=== PATIENT | female | born 1995 | race Caucasian/White ===

== ENCOUNTER 2020-12-29 10:41 | Emergency (ER) | payer OTHER ==
[~2020-12-29] VITALS: Ht 170.2 cm; Wt 66.8 kg
[2020-12-29] MEDS ORDERED: SM M250T2 PO (10:57)
[2020-12-29] MEDS ORDERED: ASCO500T PO (10:57)
[2020-12-29] MEDS ORDERED: MULTTAB20 PO (10:57)
[2020-12-29] MEDS ORDERED: CINN500C2 PO (10:57)
[2020-12-29 11:37] LABS: BASO % 0.4 % (0.0-1.0); EOS # 0.1 10^3/uL (0.0-0.5); HEMATOCRIT 40.2 % (36.0-47.0); HEMOGLOBIN 13.5 g/dl (12.0-15.5); LYMPH # 1.9 10^3/uL (1.5-5.0); LYMPH % 19.3 % (24.0-44.0); MEAN CORPUSCULAR HEMOGLOBIN 29.9 pg (27.0-33.0); MEAN CORPUSCULAR HGB CONC 33.6 g/dl (32.0-36.5); MEAN CORPUSCULAR VOLUME 89.1 fl (80.0-96.0); MONO # 0.7 10^3/uL (0.0-0.8); MONO % 6.9 % (2.0-8.0); NEUTROPHILS # 7.2 10^3/uL (1.5-8.5); NEUTROPHILS % 72.2 % (36.0-66.0); PLATELET COUNT, AUTOMATED 380 10^3/uL (150-450); RED BLOOD COUNT 4.51 10^6/uL (4.00-5.40)
[2020-12-29 12:06] LABS: ALBUMIN 3.7 GM/DL (3.2-5.2); ALT/SGPT 13 U/L (12-78); BILIRUBIN,DIRECT 0.2 MG/DL (0.0-0.2); BILIRUBIN,TOTAL 1.1 MG/DL (0.2-1.0); BLOOD UREA NITROGEN 8 MG/DL (7-18); CALCIUM LEVEL 8.8 MG/DL (8.5-10.1); CARBON DIOXIDE LEVEL 32 MEQ/L (21-32); CHLORIDE LEVEL 107 MEQ/L (98-107); CREATININE FOR GFR 0.66 MG/DL (0.55-1.30); GLOMERULAR FILTRATION RATE > 60.0 (>60); GLUCOSE, FASTING 83 MG/DL (70-100); HCG, SERUM QUALITATIVE NEGATIVE (NEGATIVE); LIPASE 110 U/L (73-393); POTASSIUM SERUM 4.3 MEQ/L (3.5-5.1); SODIUM LEVEL 140 MEQ/L (136-145); TOTAL PROTEIN 7.5 GM/DL (6.4-8.2)
[2020-12-29 13:50] LABS: APPEARANCE, URINE CLEAR (CLEAR); BACTERIA, URINE AUTO NEGATIVE (NEGATIVE); BILIRUBIN, URINE AUTO NEGATIVE (NEGATIVE); BLOOD, URINE BLOOD 1+ (NEGATIVE); COLOR, URINE STRAW (YELLOW); GLUCOSE, URINE (UA) AUTO NEGATIVE (NEGATIVE); KETONE, URINE AUTO NEGATIVE (NEGATIVE); LEUKOCYTE ESTERASE, URINE AUTO NEGATIVE (NEGATIVE); NITRITE, URINE AUTO NEGATIVE (NEGATIVE); PROTEIN, URINE AUTO NEGATIVE (NEGATIVE); RBC, URINE AUTO 0 /HPF (0-3); SPECIFIC GRAVITY URINE AUTO 1.005 (1.002-1.035); SQUAMOUS EPITHELIAL CELL UR AU 1 /HPF (0-6); UROBILINOGEN, URINE AUTO 0.2 mg/dL (0.0-2.0); WBC, URINE AUTO 0 /HPF (0-3)
--- NOTE | 2020-12-29 14:34 | REP ---
INDICATION: abnormal vaginal bleeding. COMPARISON: None. TECHNIQUE: Transvesical and transvaginal scanning FINDINGS: The uterus measures 6.9 x 3.9 x 5.4 cm. The parenchymal echo pattern is within normal limits. The endometrial echo complex is smooth and unremarkable appearing measuring 2 mm in its greatest thickness. The right ovary measures 3 x 1.3 x 1.4 cm and is within normal limits with an RI of 0.47. The left ovary measures 4.6 x 1.3 x 3 cm and is within normal limits with an RI of 0.40. Urinary bladder measures 8 x 4 x 9 cm IMPRESSION: Unremarkable pelvic ultrasound <Electronically signed by Jm Hunt > 12/29/20 [id number]
[2020-12-29 14:42] VITALS: BP 112/53
== END 2020-12-29 14:45 | disposition home or self-care (01) ==
LOC: M ED 10:41
DX: N93.9 Abnormal uterine and vaginal bleeding, unspecified (principal); Z79.899 Other long term (current) drug therapy

== ENCOUNTER → 2021-04-10 | Outpatient (CLI) | payer OTHER ==
[~2021-04-10] MED LIST: ASCO500T PO; CINN500C2 PO; ISOVUE-370 76% 100ML VIAL As Ordered ONE; MULTTAB20 PO; SM M250T2 PO
--- NOTE | 2021-04-10 16:49 | REP ---
INDICATION: INFERTILITY. COMPARISON: None. TECHNIQUE: The endometrium was cannulated and contrast was injected by the attending precision machining instructor Dr. Michele. Fluoroscopic spot films were acquired by GEORGE Toussaint, under the direct supervision of Dr. Lucia. Images reviewed prior to dictation with Dr. Lucia. FINDINGS: Fluoroscopy spot radiographs document filling of a normal endometrial cavity. There is normal isthmic and ampullary fallopian tube opacification, and bilateral tubal patency was documented. IMPRESSION: Normal hysterosalpingogram with bilateral tubal patency documented. 0.4 minutes of fluoroscopy time was utilized for this procedure. Some fluoroscopic images are performed with last image hold technology. These images require no additional radiation. <Electronically signed by Cierra Au > 04/10/21 [id number] <Electronically signed by Matias Lucia > 04/10/21 [id number]
== END ==
LOC: M RADPRO 11:39
PROVIDERS: ATTEND Obstetrics & Gynecology
DX: N97.9 Female infertility, unspecified (principal)
CPT/HCPCS: 58340; 74740; Q9967

== ENCOUNTER 2021-07-09 05:58 | Emergency (ER) | payer OTHER ==
[~2021-07-09] VITALS: Ht 165.1 cm; Wt 64.5 kg
[2021-07-09 05:58] VITALS: BP 98/55
[~2021-07-09 05:58] MED LIST changes: -ISOVUE-370 76% 100ML VIAL As Ordered ONE
[2021-07-09 06:41] LABS: BASO % 0.2 % (0.0-1.0); EOS # 0.1 10^3/uL (0.0-0.5); EOS % 0.5 % (0.0-3.0); HEMATOCRIT 38.9 % (36.0-47.0); HEMOGLOBIN 13.4 g/dl (12.0-15.5); LYMPH # 2.1 10^3/uL (1.5-5.0); LYMPH % 15.8 % (24.0-44.0); MEAN CORPUSCULAR HGB CONC 34.4 g/dl (32.0-36.5); MONO # 0.8 10^3/uL (0.0-0.8); MONO % 6.2 % (2.0-8.0); NEUTROPHILS % 76.8 % (36.0-66.0); PLATELET COUNT, AUTOMATED 323 10^3/uL (150-450); RED BLOOD COUNT 4.47 10^6/uL (4.00-5.40); WHITE BLOOD COUNT 13.1 10^3/uL (4.0-10.0)
[2021-07-09 07:20] LABS: BLOOD UREA NITROGEN 5 MG/DL (7-18); CALCIUM LEVEL 8.8 MG/DL (8.5-10.1); CARBON DIOXIDE LEVEL 23 MEQ/L (21-32); CHLORIDE LEVEL 107 MEQ/L (98-107); GLOMERULAR FILTRATION RATE > 60.0 (>60); GLUCOSE, FASTING 85 MG/DL (70-100); HCG, SERUM QUANTITATIVE 52244 MIU/ML; POTASSIUM SERUM 3.7 MEQ/L (3.5-5.1); SODIUM LEVEL 138 MEQ/L (136-145)
--- NOTE | 2021-07-09 07:31 | REPVR ---
PROCEDURE INFORMATION: Exam: US , Limited Exam date and time: 07/09/2021 6:50 AM Age: 25 years old Clinical indication: Lmp or gestational age (in weeks): 14w2d; Antepartum complications; Bleeding; ; Additional info: Vaginal bleeding TECHNIQUE: Imaging protocol: Real-time ultrasound of the maternal uterus with image documentation. Exam focused on the clinical indication. COMPARISON: US PELVIC NON-OB COMPLETE 12/29/2020 1:37 PM FINDINGS: Gestation: Single live intrauterine . heart rate: heart rate 146 bpm. position: Variable position. Placenta: Posterior placenta which appears to cover at least part of the internal cervical os, consistent with placenta previa. Heterogeneous collection along the right fundal aspect of the gestational sac measuring 5.4 x 1.8 x 2.6 cm, consistent with subchorionic hemorrhage. BIOMETRY: Estimated due date (AUA): J[facility]ON 01/01/2022. Gestational age (AUA): Ultrasound composite gestational age 14 weeks 6 days. Estimated weight: Estimated weight 101 g Biparietal diameter (BPD): BPD 2.8 cm, 15 weeks 1 day. Head circumference: Head circumference 10.9 cm, 15 weeks 2 days. Abdominal circumference (AC): Abdominal circumference 8.6 cm, 14 weeks 6 days. Femur length (FL): Femur length 1.4 cm, 14 weeks 1 day. MATERNAL: Cervix: Cervix is closed measuring 4.1 cm in length. Right ovary/adnexa: Right ovary not visualized, obscured by bowel gas. Left ovary/adnexa: Left ovary measures 3.6 x 2.4 x 2.5 cm and is unremarkable. Blood flow present within the left ovary. No adnexal mass. IMPRESSION: 1. Single viable IUP with ultrasound composite gestational age 14 weeks 6 days. 2. Posterior placenta with at least partial placenta previa. Follow-up recommended. 3. Right fundal subchorionic hemorrhage measuring 5.4 x 1.8 x 2.6 cm. Electronically signed by: Josiah Fitzpatrick On 07/09/2021 07:31:14 AM
[2021-07-09 07:45] LABS: AMORPHOUS SEDIMENT MODERATE (NEGATIVE); APPEARANCE, URINE HAZY (CLEAR); BACTERIA, URINE AUTO NEGATIVE (NEGATIVE); BILIRUBIN, URINE AUTO NEGATIVE (NEGATIVE); BLOOD, URINE BLOOD 2+ (NEGATIVE); COLOR, URINE YELLOW (YELLOW); GLUCOSE, URINE (UA) AUTO NEGATIVE (NEGATIVE); KETONE, URINE AUTO NEGATIVE (NEGATIVE); LEUKOCYTE ESTERASE, URINE AUTO TRACE (NEGATIVE); MUCUS, URINE SMALL (NEGATIVE); NITRITE, URINE AUTO NEGATIVE (NEGATIVE); PROTEIN, URINE AUTO NEGATIVE (NEGATIVE); RBC, URINE AUTO 2 /HPF (0-3); SPECIFIC GRAVITY URINE AUTO 1.009 (1.002-1.035); SQUAMOUS EPITHELIAL CELL UR AU 9 /HPF (0-6); UROBILINOGEN, URINE AUTO 0.2 mg/dL (0.0-2.0); WBC, URINE AUTO 3 /HPF (0-3)
--- NOTE | 2021-07-09 09:51 | ED PDOC ---
Post-Departure Follow-Up ob us faxed to [facility] for [facility] Lloyd Licona MD Jul 09, 2021 09:51
== END 2021-07-09 08:48 | disposition home or self-care (01) ==
LOC: M ED 05:58
DX: O44.32 Partial placenta previa with hemorrhage, second trimester (principal); O20.8 Other hemorrhage in early pregnancy; Z3A.14 14 weeks gestation of pregnancy; Z91.010 Allergy to peanuts

== ENCOUNTER 2021-07-11 11:54 | Emergency (ER) | payer OTHER ==
[~2021-07-11] VITALS: Ht 165.1 cm; Wt 64.7 kg
[2021-07-11 11:56] VITALS: BP 112/62
[2021-07-11 12:52] LABS: HEMATOCRIT 37.6 % (36.0-47.0); HEMOGLOBIN 12.8 g/dl (12.0-15.5); MEAN CORPUSCULAR HEMOGLOBIN 29.9 pg (27.0-33.0); MEAN CORPUSCULAR VOLUME 87.9 fl (80.0-96.0); PLATELET COUNT, AUTOMATED 329 10^3/uL (150-450); RED BLOOD COUNT 4.28 10^6/uL (4.00-5.40); WHITE BLOOD COUNT 14.1 10^3/uL (4.0-10.0)
--- NOTE | 2021-07-11 13:09 | REP ---
INDICATION: repeat per [facility] [employer]; 14 weeks with vaginal bleeding COMPARISON: 07/09/2021 TECHNIQUE: Transabdominal obstetrical ultrasound with color Doppler evaluation. FINDINGS: Examination demonstrates a single live intrauterine in transverse presentation (head to maternal right). motion is identified by technologist. Placenta is noted posterior/fundal and grade 0 without evidence for placenta previa or abruption. Amniotic fluid volume is normal. Cervix measures 3.3 cm in length and appears closed. Placenta age measures 2.3 cm from the closed internal os. A right fundal subchorionic hemorrhages again seen and slightly decreased in size measuring 3.6 x 1.8 x 1.8 cm (previously measuring 5.4 x 1.8 x 2.6 cm). Selected gestational age: 14 weeks 4 days with JHON 01/05/2022. FHR equals 143 beats per minute. IMPRESSION: 1. Single live early intrauterine at 14 weeks 4 days gestational age. Complete anatomical assessment should be performed at 19-20 weeks. 2. Subchorionic hemorrhage slightly decreased in size from prior examination. 3. No evidence for placenta previa on current examination. <Electronically signed by Josiah Ambrocio > 07/11/21 [id number]
== END 2021-07-11 13:52 | disposition home or self-care (01) ==
LOC: M ED 13:33
DX: O20.8 Other hemorrhage in early pregnancy (principal); Z3A.14 14 weeks gestation of pregnancy; Z91.010 Allergy to peanuts

== ENCOUNTER 2022-01-06 07:25 | Inpatient (IN) | payer OTHER ==
[~2022-01-06] VITALS: Ht 165.1 cm; Wt 83.0 kg
[2022-01-06] VITALS (9 sets, daily range): BP systolic 105–135; BP diastolic 55–69
[2022-01-06] MEDS ORDERED: OXYTOCIN 30 UNITS IN 0.9% NaCl 500ML IV BAG (J2590) As Ordered ONE (07:59)
[2022-01-06] MEDS ORDERED: LACTATED RINGER'S 1000 ML IV STA (08:01)
[2022-01-06] MEDS ORDERED: TRANEXAMIC ACID INJection 1,000 MG in NS 100 ML IV PRN (08:05)
[2022-01-06] MEDS ORDERED: METHYLERGONOVINE MALEATE 0.2 MG/ML VIAL (J2210) IM PRN (08:05)
[2022-01-06] MEDS ORDERED: LIDOCAINE 1% MDV 20ML VIAL INFIL PRN (08:05)
[2022-01-06] MEDS ORDERED: LR 1,000 ML IV SCH (08:05)
[2022-01-06] MEDS ORDERED: OXYTOCIN DRIP 30 UNITS in IV 1 EA IV PRN ×4 (08:05)
[2022-01-06] MEDS ORDERED: OXYTOCIN INJ 10 UNITS/ML VIAL (J2590) IV PRN (08:05)
[2022-01-06] MEDS ORDERED: CARBOPROST TROMETHAMINE 250 MCG/ML AMP IM PRN (08:05)
[2022-01-06] MEDS: PRENATAL VITAMINS CHEWABLE TABLET PO SCH (09:00)
[2022-01-06 09:42] LABS: CORD GAS ABE V -8.1; CORD GAS HCO3 V 16.9 MEQ/L; CORD GAS O2 SAT V 79.7 %; CORD GAS PCO2 V 34.5 mmHg; CORD GAS PH V 7.309 UNITS; CORD GAS SBC V 17.7 MEQ/L
[2022-01-06 09:43] LABS: CORD GAS ABE A -7.7; CORD GAS HCO3 A 18.4 MEQ/L; CORD GAS O2 SAT A 76.7 %; CORD GAS PCO2 A 39.5 mmHg; CORD GAS PH A 7.285 UNITS; CORD GAS PO2 A 34.1 mmHg; CORD GAS SBC A 17.9 MEQ/L; CORD GAS TCO2 A 19.6 MEQ/L
[2022-01-06] MEDS ORDERED: DIBUCAINE 1% OINTMENT 30GM TOP PRN (10:00)
[2022-01-06] MEDS ORDERED: ACETAMINOPHEN 500 MG TAB PO PRN (10:00)
[2022-01-06] MEDS ORDERED: METHYLERGONOVINE MALEATE 0.2 MG TAB PO PRN (10:00)
[2022-01-06] MEDS ORDERED: ACETAMINOPHEN TAB 650MG DOSE (2X325MG) PO PRN (10:00)
[2022-01-06] MEDS ORDERED: IBUPROFEN 600MG TAB PO PRN (10:00)
[2022-01-06] MEDS: IBUPROFEN 800 MG TAB PO PRN ×2 (10:21→19:52)
[2022-01-06 11:50] LABS: HEMATOCRIT 37.2 % (36.0-47.0); HEMOGLOBIN 12.6 g/dl (12.0-15.5); MEAN CORPUSCULAR HEMOGLOBIN 30.1 pg (27.0-33.0); MEAN CORPUSCULAR HGB CONC 33.9 g/dl (32.0-36.5); MEAN CORPUSCULAR VOLUME 88.8 fl (80.0-96.0); PLATELET COUNT, AUTOMATED 241 10^3/uL (150-450); RED BLOOD COUNT 4.19 10^6/uL (4.00-5.40)
[2022-01-06 11:53] LABS: WHITE BLOOD COUNT 40.5 10^3/uL (4.0-10.0)
[2022-01-06 12:03] LABS: BASO % 0.2 % (0.0-1.0); LYMPH # 0.5 10^3/uL (1.5-5.0); LYMPH % 1.2 % (24.0-44.0); MONO % 5.3 % (2.0-8.0); NEUTROPHILS # 36.9 10^3/uL (1.5-8.5); NEUTROPHILS % 91.6 % (36.0-66.0)
[2022-01-06 12:04] LABS: MONO # 2.1 10^3/uL (0.0-0.8)
[2022-01-06 13:57] LABS: BASO # 0.1 10^3/uL (0.0-0.2); BASO % 0.2 % (0.0-1.0); HEMATOCRIT 40.1 % (36.0-47.0); LYMPH # 0.7 10^3/uL (1.5-5.0); LYMPH % 1.7 % (24.0-44.0); MEAN CORPUSCULAR HEMOGLOBIN 29.7 pg (27.0-33.0); MEAN CORPUSCULAR HGB CONC 32.4 g/dl (32.0-36.5); MEAN CORPUSCULAR VOLUME 91.6 fl (80.0-96.0); MONO % 4.9 % (2.0-8.0); NEUTROPHILS # 37.4 10^3/uL (1.5-8.5); NEUTROPHILS % 91.7 % (36.0-66.0); PLATELET COUNT, AUTOMATED 258 10^3/uL (150-450); RED BLOOD COUNT 4.38 10^6/uL (4.00-5.40)
[2022-01-06 14:38] LABS: WHITE BLOOD COUNT 40.8 10^3/uL (4.0-10.0)
[2022-01-06] MEDS: CLINDAMYCIN 900 MG in IV 1 EA IV SCH ×2 (15:37→22:45)
[2022-01-06] MEDS: AMPICILLIN SOD 2 GM in D5W MINI-BAG PLUS 100 ML IV SCH ×2 (16:30→22:04)
[2022-01-06] MEDS: GENTAMICIN 400 MG in D5W 100 ML IV SCH (17:11)
[2022-01-07 02:00] VITALS: BP 109/59
[2022-01-07] MEDS: AMPICILLIN SOD 2 GM in D5W MINI-BAG PLUS 100 ML IV SCH ×3 (04:02→16:00)
[2022-01-07] MEDS: CLINDAMYCIN 900 MG in IV 1 EA IV SCH ×2 (06:46→16:14)
[2022-01-07] MEDS: IBUPROFEN 800 MG TAB PO PRN ×2 (06:53→16:26)
[2022-01-07 07:57] LABS: BASO # 0.1 10^3/uL (0.0-0.2); BASO % 0.2 % (0.0-1.0); EOS % 0.2 % (0.0-3.0); HEMATOCRIT 31.7 % (36.0-47.0); LYMPH % 7.7 % (24.0-44.0); MEAN CORPUSCULAR HEMOGLOBIN 29.3 pg (27.0-33.0); MEAN CORPUSCULAR HGB CONC 33.1 g/dl (32.0-36.5); MEAN CORPUSCULAR VOLUME 88.5 fl (80.0-96.0); MONO % 6.1 % (2.0-8.0); NEUTROPHILS # 21.9 10^3/uL (1.5-8.5); NEUTROPHILS % 84.9 % (36.0-66.0); PLATELET COUNT, AUTOMATED 224 10^3/uL (150-450); RED BLOOD COUNT 3.58 10^6/uL (4.00-5.40); WHITE BLOOD COUNT 25.7 10^3/uL (4.0-10.0)
[2022-01-07 07:59] LABS: HEMOGLOBIN 10.5 g/dl (12.0-15.5); MONO # 1.6 10^3/uL (0.0-0.8)
[2022-01-07] MEDS: DOCUSATE SODIUM 100MG CAPSULE PO PRN ×2 (08:24→20:37)
[2022-01-07] MEDS: PRENATAL VITAMINS CHEWABLE TABLET PO SCH (08:24)
[2022-01-07 10:00] VITALS: BP 101/60
[2022-01-07 14:00] VITALS: BP 111/63
[2022-01-07] MEDS: GENTAMICIN 400 MG in D5W 100 ML IV SCH (17:00)
[2022-01-07 18:00] VITALS: BP 96/52
[2022-01-07 23:00] VITALS: BP 106/66
[2022-01-08] MEDS ORDERED: IBUP-1022 PO (05:42)
[2022-01-08] MEDS ORDERED: COLA100C5 PO (05:42)
[2022-01-08] MEDS ORDERED: ACET1TAB55 PO (05:42)
[2022-01-08 06:00] VITALS: BP 108/56
[2022-01-08] MEDS: IBUPROFEN 800 MG TAB PO PRN (06:20)
[2022-01-08] MEDS: PRENATAL VITAMINS CHEWABLE TABLET PO SCH (10:55)
== END 2022-01-08 13:30 | disposition home or self-care (01) | DRG 805 ==
LOC: M LDO 07:25 → M LDI 07:53 → M OBS 12:28
PROVIDERS: ADMIT Advanced Practice Midwife; ATTEND Advanced Practice Midwife
PROC: 10E0XZZ Delivery of Products of Conception, External Approach (ICD-10-PCS; principal; 2022-01-06)
PROC: 0KQM0ZZ Repair Perineum Muscle, Open Approach (ICD-10-PCS; 2022-01-06)
DX: O42.02 Full-term premature rupture of membranes, onset of labor within 24 hours of rupture (principal); Z37.0 Single live birth; O41.1230 Chorioamnionitis, third trimester, not applicable or unspecified; Z3A.40 40 weeks gestation of pregnancy; O66.0 Obstructed labor due to shoulder dystocia; O69.1XX0 Labor and delivery complicated by cord around neck, with compression, not applicable or unspecified; O70.1 Second degree perineal laceration during delivery; Z91.19 Patient's noncompliance with other medical treatment and regimen